=== PATIENT | male | born 1980 | race African-American/Black ===

== ENCOUNTER 2017-02-16 16:22 | Outpatient (CLI) | payer OTHER ==
--- NOTE | 2017-02-17 07:27 | RAD ---
ABDOMINAL SURVEY WITH UPRIGHT CHEST AND TWO VIEWS ABDOMEN: History: Abdominal pain. FINDINGS: Lungs are clear. Bowel gas pattern is unremarkable. Scattered stool and gas throughout the colon. No mass effect or a bnormal calcifications seen. No evidence of free air. IMPRESSION: Unremarkable abdominal survey. POS: [facility]
== END 2017-02-16 16:23 | disposition home or self-care (01) ==
LOC: MADRAD 16:22
PROVIDERS: ATTEND Family Medicine
DX: R10.33 Periumbilical pain (principal)
CPT/HCPCS: 74022

== ENCOUNTER 2017-02-20 15:27 | Emergency (ER) | payer SELFPAY ==
[~2017-02-20 15:27] MED LIST: Iopamidol 370 76% 100 ML VIAL ONE
[2017-02-20 16:01] LABS: #Basophils 0.1 thou/uL (0.0-0.2); #Eosinphils 0.1 thou/uL (0.0-0.7); #Lymphocytes 2.4 thou/uL (1.20-3.40); #Monocytes 0.5 thou/uL (0.11-0.59); #Neutrophils 2.2 thou/uL (1.40-6.50); %Basophils 2.1 % (0.0-1.0); %Eosinophils 1.8 % (0.0-10.0); %Lymphocytes 44.6 % (21.0-51.0); %Monocytes 9.9 % (0.0-10.0); %Neutrophils 41.7 % (42.0-75.0); Hemoglobin 16.9 g/dL (14.0-18.0); Mean Corpuscular HGB CONC 31.6 g/dL (32.0-36.0); Mean Corpuscular Hemoglobin 27.9 pg (27.0-31.0); Mean Corpuscular Volume 88.3 fl (80.0-94.0); Mean Platelet Volume 8.1 fL (7.4-10.4); Platelet Count 184 thou/uL (130-400); RBC Distribution Width 13.5 % (11.5-14.5); Red Blood Cell (RBC) Count 6.06 mill/uL (4.70-6.10); White Blood Cell (WBC) Count 5.3 thou/uL (4.8-10.8)
[2017-02-20] MEDS ORDERED: Ondansetron HCl/PF 4 MG/2 ML Vial ONE (16:07)
[2017-02-20] MEDS ORDERED: Fentanyl 100 MCG/2 ML VIAL ONE (16:07)
[2017-02-20 16:18] LABS: Amylase 147 U/L (25-125); Anion Gap 13 mmol/L (10-20); BUN (Urea Nitrogen) 11 mg/dL (8.9-20.6); Calc. Creatinine Clearance 0 mL/min (70-130); Calcium 9.1 mg/dL (7.8-10.44); Carbon Dioxide 24 mmol/L (22-29); Chloride 105 mmol/L (98-107); Estimated GFR-MDRD Greater than 90; Glucose 82 mg/dL (70-105); Lipase 48 U/L (8-78); Potassium 4.4 mmol/L (3.5-5.1); Sodium 138 mmol/L (136-145)
[2017-02-20 17:31] LABS: Bilirubin Negative (Negative); Blood, Urine Negative (Negative); Clarity Clear (Clear); Glucose, Urine (Dipstick) Negative (Negative); Leukocyte Negative (Negative); Nitrite Negative (Negative); Protein, Urine (Dipstick) Negative (Neg-Trace)
--- NOTE | 2017-02-20 18:31 | CT ---
EXAM: ABDOMEN CT WITH CONTRAST PELVIC CT WITH CONTRAST 02/20/17 HISTORY: Abdominal pain with previous hernia surgeries x3. Umbilical pain. Abdominal distention and tendernes s. COMPARISON: 06/14/14. TECHNIQUE: Abdomen and pelvic CT are performed with IV contrast. Coronal reformatted images are submitted for i nterpretation. FINDINGS: ABDOMEN CT: Scarring in the lung bases. Heart size is normal. No pericardial effusion. Visualized aorta has a normal caliber. Symmetric atte nuation of the psoas muscles. Intra and extrahepatic portal vein is patent. Liver, spleen, pancreas and adrenal glands have appropriate enhancement. Symmetric enhancement of the kidneys. Bilaterally, no obstructive uropathy. No gastrohepatic, retrocrural or periportal lymphadenopathy. No mesenteric mass, lymphadenopathy, fr ee air or free fluid. There is no evidence of a ventral abdominal wall hernia. No evidence of an ing uinal hernia. Alimentary canal is unremarkable. No bowel obstruction. Ileocecal junction is normal. Normal caliber appendix emanating from the cecal apex. Colon is unremarkable. PELVIC CT: No mass, lymphadenopathy, free air or free fluid. The urinary bladder is unremarkable. There are no osteoblastic or osteolytic lesions. IMPRESSION: 1. No acute abnormality in the abdomen or pelvis. 2. Normal caliber appendix. POS: [facility]
== END 2017-02-20 18:54 | disposition home or self-care (01) ==
LOC: MADERS 15:27
DX: R10.9 Unspecified abdominal pain (principal); I10 Essential (primary) hypertension; F17.210 Nicotine dependence, cigarettes, uncomplicated
CPT/HCPCS: 74177; 80048; 81003; 82150; 83690; 85025; 96374; 96375; J2405; J3010

== ENCOUNTER 2017-10-24 16:19 | Emergency (ER) | payer SELFPAY | END 2017-10-24 18:12 | disposition home or self-care (01) | LOC: MADERS 16:19 | DX: M62.838 Other muscle spasm (principal); I10 Essential (primary) hypertension; F17.210 Nicotine dependence, cigarettes, uncomplicated; Z79.899 Other long term (current) drug therapy | CPT/HCPCS: 99283 ==

== ENCOUNTER 2018-05-05 19:07 | Emergency (ER) | payer SELFPAY ==
[2018-05-05] MEDS ORDERED: Ketorolac Tromethamine 30 MG/ML VIAL ONE (19:28)
[2018-05-05] MEDS ORDERED: Promethazine HCl 25 MG/ML VIAL ONE (19:28)
[2018-05-05] MEDS ORDERED: Ketorolac Tromethamine 60 MG/2 ML VIAL ONE (19:32)
== END 2018-05-05 20:45 | disposition home or self-care (01) ==
LOC: MADERS 19:07
DX: R51 Headache (principal); I10 Essential (primary) hypertension; F17.210 Nicotine dependence, cigarettes, uncomplicated; Z79.899 Other long term (current) drug therapy
CPT/HCPCS: 96372; 99406; J1885; J2550

== ENCOUNTER 2019-01-20 13:14 | Emergency (ER) | payer SELFPAY ==
--- NOTE | 2019-01-20 14:09 | RAD ---
FRadiograph right foot 3 views: HISTORY: 38-year-old male status post right for traumatic injury FINDINGS: No fracture or dislocation IMPRESSION: Negative
== END 2019-01-20 14:31 | disposition home or self-care (01) ==
LOC: MADERS 13:14
DX: S93.601A Unspecified sprain of right foot, initial encounter (principal); I10 Essential (primary) hypertension; F17.210 Nicotine dependence, cigarettes, uncomplicated; X58.XXXA Exposure to other specified factors, initial encounter

== ENCOUNTER 2020-06-21 09:17 | Emergency (ER) | payer SELFPAY ==
[2020-06-21] MEDS ORDERED: Metoclopramide HCl 10 MG/2 ML VIAL ONE (10:02)
[2020-06-21] MEDS ORDERED: diphenhydrAMINE 50 MG/ML VIAL ONE (10:02)
[2020-06-21] MEDS ORDERED: Ketorolac Tromethamine 30 MG/ML VIAL ONE (10:02)
[2020-06-21 10:33] LABS: #Basophils 0.1 thou/uL (0.0-0.2); #Eosinphils 0.1 thou/uL (0.0-0.7); #Lymphocytes 2.2 thou/uL (1.20-3.40); #Monocytes 0.5 thou/uL (0.11-0.59); %Basophils 2.3 % (0.0-1.0); %Eosinophils 1.6 % (0.0-10.0); %Lymphocytes 36.6 % (21.0-51.0); %Monocytes 8.8 % (0.0-10.0); %Neutrophils 50.8 % (42.0-75.0); Hemoglobin 16.5 g/dL (14.0-18.0); Mean Corpuscular HGB CONC 31.1 g/dL (32.0-36.0); Mean Corpuscular Volume 86.8 fL (78.0-98.0); Mean Platelet Volume 7.8 fL (7.4-10.4); Platelet Count 226 thou/uL (130-400); RBC Distribution Width 13.2 % (11.5-14.5); White Blood Cell (WBC) Count 5.9 thou/uL (4.8-10.8)
[2020-06-21 10:49] LABS: ALT (SGPT) 18 U/L (8-55); AST (SGOT) 17 U/L (5-34); Albumin 4.2 g/dL (3.5-5.0); Alkaline Phosphatase 75 U/L (40-110); Anion Gap 14 mmol/L (10-20); BUN (Urea Nitrogen) 6 mg/dL (8.9-20.6); Bilirubin, Total 0.5 mg/dL (0.2-1.2); Calc. Creatinine Clearance 0 mL/min (70-130); Calcium 8.9 mg/dL (7.8-10.44); Carbon Dioxide 27 mmol/L (22-29); Chloride 103 mmol/L (98-107); Estimated GFR-MDRD Greater than 90; Globulin 3.7 g/dL (2.4-3.5); Glucose 88 mg/dL (70-105); Potassium 3.7 mmol/L (3.5-5.1); Protein, Total 7.9 g/dL (6.0-8.3); Prothrombin Time 13.4 sec (12.0-14.7); Sodium 140 mmol/L (136-145)
== END 2020-06-21 12:02 | disposition home or self-care (01) ==
LOC: MADERS 09:17
DX: R51 Headache (principal); I10 Essential (primary) hypertension; F17.210 Nicotine dependence, cigarettes, uncomplicated
CPT/HCPCS: 80053; 85025; 85610; 96374; 96375; J1200; J1885; J2765

== ENCOUNTER 2021-03-27 15:57 | Emergency (ER) | payer SELFPAY ==
[2021-03-27] MEDS ORDERED: Ketorolac Tromethamine 30 MG/ML VIAL ONE (16:24)
== END 2021-03-27 16:47 | disposition home or self-care (01) ==
LOC: MADERS 15:57
DX: M54.5 Low back pain (principal); I10 Essential (primary) hypertension; F17.210 Nicotine dependence, cigarettes, uncomplicated; Z79.899 Other long term (current) drug therapy
CPT/HCPCS: 96372; 99283; J1885

== ENCOUNTER 2021-05-12 18:23 | Emergency (ER) | payer SELFPAY ==
[2021-05-12] MEDS ORDERED: Lidocaine 1% 20 ML MDV ONE (19:17)
[2021-05-12] MEDS ORDERED: Sulfameth/Trimethoprim DS 800-160mg TAB ONE (19:53)
== END 2021-05-12 20:10 | disposition home or self-care (01) ==
LOC: MADERS 18:23
DX: L02.01 Cutaneous abscess of face (principal); H11.32 Conjunctival hemorrhage, left eye; I10 Essential (primary) hypertension; Z87.19 Personal history of other diseases of the digestive system; F17.210 Nicotine dependence, cigarettes, uncomplicated
CPT/HCPCS: 10060

== ENCOUNTER 2021-05-14 16:00 | Emergency (ER) | payer SELFPAY | END 2021-05-14 16:47 | disposition home or self-care (01) | LOC: MADERS 16:00 | DX: Z48.817 Encounter for surgical aftercare following surgery on the skin and subcutaneous tissue (principal); I10 Essential (primary) hypertension; F17.210 Nicotine dependence, cigarettes, uncomplicated | CPT/HCPCS: 99282 ==